=== PATIENT | male | born 1960 | race Hispanic/Latino ===

== ENCOUNTER → 2017-04-30 | Outpatient (CLI) | payer OTHER | END | disposition home or self-care (01) | LOC: OIH 09:44 | PROVIDERS: ATTEND Family Medicine | DX: I10 Essential (primary) hypertension (principal) | CPT/HCPCS: 71046 ==

== ENCOUNTER → 2018-06-07 | Outpatient (CLI) | payer OTHER | END | disposition home or self-care (01) | LOC: OIH 16:35 | PROVIDERS: ATTEND Family Medicine | DX: M25.511 Pain in right shoulder (principal); Z87.891 Personal history of nicotine dependence | CPT/HCPCS: 71046; 73030 ==

== ENCOUNTER 2018-06-19 16:25 | Inpatient (IN) | payer OTHER | END 2018-06-25 18:30 | LOC: EDH 16:25 → EDHIP 19:00 → 4BH 06-20 21:43 → 4CH 20:25 | DX: S42.321A Displaced transverse fracture of shaft of humerus, right arm, initial encounter for closed fracture (principal); D68.4 Acquired coagulation factor deficiency; R50.9 Fever, unspecified; S40.021A Contusion of right upper arm, initial encounter; D69.6 Thrombocytopenia, unspecified; R53.1 Weakness ==